=== PATIENT | female | born 1955 | race Caucasian/White ===

== ENCOUNTER 2018-05-28 17:56 | Emergency (ER) | payer OTHER ==
[~2018-05-28] VITALS: Ht 162.6 cm; Wt 54.4 kg
[~2018-05-28 17:56] MED LIST: HYDROXYCHLOROQ200 M1 PO; KLOR-CON 1010 MEQ PO; LEVSIN0.125 MG PO; NORCO 5-325 TA1 EACH PO; NORVASC5 MG PO; RECTIV30 GM TOP; ZOFRAN ODT4 MG PO
[2018-05-28 17:57] VITALS: BP 120/54
== END 2018-05-28 18:07 | disposition left against medical advice (07) ==
LOC: ER 17:56
DX: Z53.21 Procedure and treatment not carried out due to patient leaving prior to being seen by health care provider (principal)

== ENCOUNTER 2021-01-19 18:24 | Emergency (ER) | payer OTHER ==
[~2021-01-19] VITALS: Ht 162.6 cm; Wt 56.7 kg
[2021-01-19] MEDS ORDERED: IBUPROFEN 600600 M1 PO (21:45)
[2021-01-19] MEDS ORDERED: TRIAMCINOLONE 080 G3 TOP (21:45)
[2021-01-19 21:56] VITALS: BP 132/76
== END 2021-01-20 01:00 | disposition home or self-care (01) ==
LOC: ER 18:24
DX: S60.312A Abrasion of left thumb, initial encounter (principal); L30.9 Dermatitis, unspecified; M19.90 Unspecified osteoarthritis, unspecified site; X58.XXXA Exposure to other specified factors, initial encounter; Y93.89 Activity, other specified; Y92.89 Other specified places as the place of occurrence of the external cause; Y99.8 Other external cause status

== ENCOUNTER 2021-01-20 20:29 | Emergency (ER) | payer OTHER ==
[~2021-01-20] VITALS: Ht 162.6 cm; Wt 56.7 kg
[~2021-01-20 20:29] MED LIST changes: +IBUPROFEN 600600 M1 PO; +TRIAMCINOLONE 080 G3 TOP
[2021-01-21 00:21] VITALS: BP 132/76
[2021-01-22] MEDS ORDERED: RISPERDAL 1 MG T1 MG PO (19:49)
== END 2021-01-21 00:21 | disposition home or self-care (01) ==
LOC: ER 20:29
DX: J02.9 Acute pharyngitis, unspecified (principal); Z20.822 Contact with and (suspected) exposure to COVID-19; M32.9 Systemic lupus erythematosus, unspecified; M19.90 Unspecified osteoarthritis, unspecified site; M06.9 Rheumatoid arthritis, unspecified; Z79.899 Other long term (current) drug therapy

== ENCOUNTER 2021-01-22 16:55 | Emergency (ER) | payer OTHER ==
[~2021-01-22] VITALS: Ht 157.5 cm; Wt 63.5 kg
[2021-01-22] MEDS ORDERED: RISPERDAL 1 MG T1 MG PO (19:49)
[2021-01-22 20:29] VITALS: BP 119/84
== END 2021-01-22 20:34 | disposition left against medical advice (07) ==
LOC: ER 16:55
DX: G89.29 Other chronic pain (principal); M25.551 Pain in right hip; M19.90 Unspecified osteoarthritis, unspecified site; Z59.0 Homelessness